=== PATIENT | male | born 1990 | race African-American/Black ===

== ENCOUNTER 2019-07-10 14:24 | Emergency (ER) | payer OTHER ==
[~2019-07-10] VITALS: Ht 172.7 cm; Wt 91.2 kg
[2019-07-10 14:25] VITALS: BP 123/101
== END 2019-07-10 15:23 | disposition home or self-care (01) ==
LOC: ER 14:24
DX: S13.8XXA Sprain of joints and ligaments of other parts of neck, initial encounter (principal); R51 Headache; J45.909 Unspecified asthma, uncomplicated; V89.2XXA Person injured in unspecified motor-vehicle accident, traffic, initial encounter; Y93.89 Activity, other specified; Y92.89 Other specified places as the place of occurrence of the external cause; Y99.8 Other external cause status

== ENCOUNTER 2019-07-17 20:47 | Emergency (ER) | payer OTHER ==
[~2019-07-17] VITALS: Ht 172.7 cm; Wt 90.7 kg
[2019-07-17] MEDS ORDERED: PROAIR HFA8.5 GM INH ×2 (21:19→23:31)
[2019-07-17] MEDS ORDERED: ONDANSETRON HCL4 M3 SUBLING (21:21)
[2019-07-17] MEDS ORDERED: FLOVENT HFA12 GM INH (21:22)
[2019-07-17] MEDS ORDERED: ACYCLOVIR 400400 MG PO (21:23)
[2019-07-17] MEDS ORDERED: CLOTRIMAZOLE 1%15 G1 TOP (21:24)
[2019-07-17] MEDS ORDERED: PREDNISONE 10 M10 M1 PO (21:59)
[2019-07-17] MEDS ORDERED: VALTREX1000 MG PO (22:03)
[2019-07-17 23:56] VITALS: BP 136/100
== END 2019-07-17 23:57 | disposition home or self-care (01) ==
LOC: ER 20:47
DX: J45.901 Unspecified asthma with (acute) exacerbation (principal); A60.00 Herpesviral infection of urogenital system, unspecified; Z86.011 Personal history of benign neoplasm of the brain

== ENCOUNTER 2019-11-07 07:16 | Emergency (ER) | payer OTHER ==
[~2019-11-07] VITALS: Ht 172.7 cm; Wt 90.7 kg
[~2019-11-07 07:16] MED LIST: ACYCLOVIR 400400 MG PO; CLOTRIMAZOLE 1%15 G1 TOP; FLOVENT HFA12 GM INH; ONDANSETRON HCL4 M3 SUBLING; PREDNISONE 10 M10 M1 PO; PROAIR HFA8.5 GM INH; VALTREX1000 MG PO
[2019-11-07 08:34] VITALS: BP 142/70
[2019-11-07] MEDS ORDERED: PREDNISONE 20 M20 M1 PO (08:41)
[2019-11-07] MEDS ORDERED: CLARITIN10 M3 PO (08:41)
[2019-11-07] MEDS ORDERED: PROAIR HFA8.5 GM INH (08:41)
== END 2019-11-07 08:57 | disposition home or self-care (01) ==
LOC: ER 07:16
DX: J45.901 Unspecified asthma with (acute) exacerbation (principal); Z79.899 Other long term (current) drug therapy

== ENCOUNTER → 2019-12-04 | Emergency (ER) | payer OTHER ==
[~2019-12-04] VITALS: Ht 172.7 cm; Wt 90.7 kg
[~2019-12-04] MED LIST changes: +CLARITIN10 M3 PO; +PREDNISONE 20 M20 M1 PO
[2019-12-04 20:52] VITALS: BP 139/89
== END ==
LOC: ER 20:49
DX: J45.901 Unspecified asthma with (acute) exacerbation (principal)

== ENCOUNTER 2020-01-23 22:02 | Emergency (ER) | payer OTHER ==
[~2020-01-23] VITALS: Ht 172.7 cm; Wt 90.7 kg
[2020-01-23] MEDS ORDERED: VENTOLIN HFA 1818 GM INH (23:21)
[2020-01-23] MEDS ORDERED: PREDNISONE 20 M20 MG PO (23:21)
[2020-01-23] MEDS ORDERED: FLONASE 0.05%50 MCG NASAL (23:24)
[2020-01-23 23:46] VITALS: BP 125/83
== END 2020-01-23 23:46 | disposition home or self-care (01) ==
LOC: ER 22:02
DX: J45.909 Unspecified asthma, uncomplicated (principal); Z79.899 Other long term (current) drug therapy

== ENCOUNTER 2020-02-10 08:07 | Emergency (ER) | payer OTHER ==
[~2020-02-10] VITALS: Ht 172.7 cm; Wt 90.7 kg
[~2020-02-10 08:07] MED LIST changes: +FLONASE 0.05%50 MCG NASAL; +PREDNISONE 20 M20 MG PO; +VENTOLIN HFA 1818 GM INH
[2020-02-10] MEDS ORDERED: SINGULAIR 10 MG10 M1 PO (08:54)
[2020-02-10] MEDS ORDERED: PREDNISONE 20 M20 MG PO (08:54)
[2020-02-10] MEDS ORDERED: VENTOLIN HFA 1818 GM INH (08:54)
[2020-02-10 09:19] VITALS: BP 114/83
== END 2020-02-10 09:19 | disposition home or self-care (01) ==
LOC: ER 08:07
DX: J45.901 Unspecified asthma with (acute) exacerbation (principal); Z79.899 Other long term (current) drug therapy